=== PATIENT | male | born 1960 | race African-American/Black ===

== ENCOUNTER 2022-02-23 08:38 | Observation (INO) | payer OTHER, MEDICAID ==
[~2022-02-23] VITALS: Ht 167.6 cm; Wt 94.6 kg
--- NOTE | 2022-02-23 08:50 | ED Psychosocial ---
General Stated Complaint: ALTERED MENTAL STATUS/COMBATIVE Source: patient Exam Limitations: clinical condition History of Present Illness Date Seen by Provider: Feb 23, 2022 Time Seen by Provider: 08:40 Initial Comments Patient kelvin 62yo male who [facility] a local [facility] chief complaint of increasing behavioral disturbance. He is throwing tables and chairs, yelling. He has been at the facility for 2 weeks and apparently has been screened by [facility] already. He has VA benefits and they are waiting on approval for the hospitalization. He is quite agitated. Yelling that he feels like he is being treated like a prisoner of war. He does calm down when distracted. He denies any SOB, chest pain, abdominal pain, extremity pain, Headache or URI symptoms. He tells me his daughter lives in [place] and he wants to go see her, he can fly for free because she works for [employer]. 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 ROS difficult due to his agitation and prob baseline underlying mental illness. Timing/Duration: getting worse Severity: moderate Allergies and Home Medications Allergies Coded Allergies: No Known Drug Allergies (Unverified , 02/23/22) Patient Home Medication List Home Medication List Reviewed: Yes Review of Systems Constitutional: see HPI EENTM: no symptoms reported Respiratory: no symptoms reported Cardiovascular: no symptoms reported Gastrointestinal: no symptoms reported Musculoskeletal: no symptoms reported Skin: no symptoms reported Psychiatric/Neurological: Other (agitation) All Other Systems Reviewed Negative Unless Noted: Yes Physical Exam Vital Signs - First Documented 02/23/22 08:40 Temp 36.8 Pulse 77 Resp 18 B/P (MAP) 131/83 (99) Pulse Ox 95 O2 Delivery Room Air Capillary Refill : Height, Weight, BMI Height: '" Weight: lbs. oz. kg; BMI Method: General Appearance: WD/WN, no apparent distress HEENT: PERRL/EOMI Respiratory: lungs clear, normal breath sounds, no respiratory distress, no accessory muscle use Cardiovascular: regular rate, rhythm Gastrointestinal: non tender, soft Extremities: normal range of motion, other (mild swelling left hame with deformity of left fingers (resembles extensor tendon atrophy - patient states prior injury/issues while in [place])) Appearance/Memory: appropriate appearance, impaired insight Behavior/Eye Contact: increased rate of speech, compulsive Thoughts/Hallucinations: paranoid Skin: normal color, warm/dry Progress/Results/Core Measures Results/Orders Lab Results Laboratory Tests Test 02/23/22 13:29 02/23/22 13:30 02/23/22 15:54 Range/Units White Blood Count 5.1 4.3-11.0 10^3/uL Red Blood Count 4.67 4.30-5.52 10^6/uL Hemoglobin 13.2 L 13.3-17.7 g/dL Hematocrit 40 40-54 % Mean Corpuscular Volume 86 80-99 fL Mean Corpuscular Hemoglobin 28 25-34 pg Mean Corpuscular Hemoglobin Concent 33 32-36 g/dL Red Cell Distribution Width 13.1 10.0-14.5 % Platelet Count 174 130-400 10^3/uL Mean Platelet Volume 10.9 9.0-12.2 fL Immature Granulocyte % (Auto) 0 % Neutrophils (%) (Auto) 60 42-75 % Lymphocytes (%) (Auto) 26 12-44 % Monocytes (%) (Auto) 12 0-12 % Eosinophils (%) (Auto) 1 0-10 % Basophils (%) (Auto) 1 0-10 % Neutrophils # (Auto) 3.1 1.8-7.8 10^3/uL Lymphocytes # (Auto) 1.3 1.0-4.0 10^3/uL Monocytes # (Auto) 0.6 0.0-1.0 10^3/uL Eosinophils # (Auto) 0.0 0.0-0.3 10^3/uL Basophils # (Auto) 0.0 0.0-0.1 10^3/uL Immature Granulocyte # (Auto) 0.0 0.0-0.1 10^3/uL Sodium Level 140 135-145 MMOL/L Potassium Level 3.7 3.6-5.0 MMOL/L Chloride Level 107 98-107 MMOL/L Carbon Dioxide Level 17 L 21-32 MMOL/L Anion Gap 16 H 5-14 MMOL/L Blood Urea Nitrogen 15 7-18 MG/DL Creatinine 1.35 H 0.60-1.30 MG/DL Estimat Glomerular Filtration Rate 60 BUN/Creatinine Ratio 11 Glucose Level 126 H 70-105 MG/DL Calcium Level 9.3 8.5-10.1 MG/DL Corrected Calcium 9.7 8.5-10.1 MG/DL Total Bilirubin 0.4 0.1-1.0 MG/DL Aspartate Amino Transf (AST/SGOT) 55 H 5-34 U/L Alanine Aminotransferase (ALT/SGPT) 65 H 0-55 U/L Alkaline Phosphatase 63 40-136 U/L Total Protein 7.5 6.4-8.2 GM/DL Albumin 3.5 3.2-4.5 GM/DL Salicylates Level < 5.0 L 5.0-20.0 MG/DL Acetaminophen Level < 10 L 10-30 UG/ML Serum Alcohol < 10 <10 MG/DL Influenza Type A (RT-PCR) Not Detected Not Detecte Influenza Type B (RT-PCR) Not Detected Not Detecte SARS-CoV-2 RNA (RT-PCR) Not Detected Not Detecte Urine Color YELLOW Urine Clarity CLEAR Urine pH 7.0 5-9 Urine Specific [place] <=1.005 1.016-1.022 Urine Protein NEGATIVE NEGATIVE Urine Glucose (UA) NEGATIVE NEGATIVE Urine Ketones NEGATIVE NEGATIVE Urine Nitrite NEGATIVE NEGATIVE Urine Bilirubin NEGATIVE NEGATIVE Urine Urobilinogen 0.2 < = 1.0 MG/DL Urine Leukocyte Esterase NEGATIVE NEGATIVE Urine RBC (Auto) NEGATIVE NEGATIVE Urine RBC NONE /HPF Urine WBC NONE /HPF Urine Squamous Epithelial Cells 0-2 /HPF Urine Crystals NONE /LPF Urine Bacteria NEGATIVE /HPF Urine Casts NONE /LPF Urine Mucus NEGATIVE /LPF Urine Culture Indicated NO Urine Opiates Screen NEGATIVE NEGATIVE Urine Oxycodone Screen NEGATIVE NEGATIVE Urine Methadone Screen NEGATIVE NEGATIVE Urine Propoxyphene Screen NEGATIVE NEGATIVE Urine Barbiturates Screen NEGATIVE NEGATIVE Ur Tricyclic Antidepressants Screen NEGATIVE NEGATIVE Urine Phencyclidine Screen NEGATIVE NEGATIVE Urine Amphetamines Screen NEGATIVE NEGATIVE Urine Methamphetamines Screen NEGATIVE NEGATIVE Urine Benzodiazepines Screen NEGATIVE NEGATIVE Urine Cocaine Screen NEGATIVE NEGATIVE Urine Cannabinoids Screen NEGATIVE NEGATIVE My Orders Orders - BRIGHT DON MD General/Regular (02/23/22 Lunch) Ziprasidone Injection (Geodon Injection) (02/23/22 12:30) Water (Sterile) For Injection (Sterile W (02/23/22 12:30) Ziprasidone Injection (Geodon Injection) (02/23/22 12:19) Ziprasidone Injection (Geodon Injection) (02/23/22 13:00) Water (Sterile) For Injection (Sterile W (02/23/22 13:00) Ekg Tracing (02/23/22 13:39) Ua Culture If Indicated (02/23/22 13:49) Cbc With Automated Diff (02/23/22 13:49) Comprehensive Metabolic Panel (02/23/22 13:49) Alcohol (02/23/22 13:49) Drug Screen Stat (Urine) (02/23/22 13:49) Acetaminophen (02/23/22 13:49) Salicylate (02/23/22 13:49) Ekg Tracing (02/23/22 13:49) Ed Iv/Invasive Line Start (02/23/22 13:49) Monitor-Rhythm Ecg Trace Only (02/23/22 13:49) Bh Status Checks/Observation O Q15M (02/23/22 13:49) Ed Iv/Invasive Line Start (02/23/22 13:49) Ns Iv 1000 Ml (Sodium Chloride 0.9%) (02/23/22 14:30) Diltiazem Injection (Cardizem Injection) (02/23/22 14:30) Covid 19 Inhouse Test (02/23/22 15:34) Influenza A And B By Pcr (02/23/22 15:34) Isolation Central Supply Req (02/23/22 15:34) Diltiazem Injection (Cardizem Injection) (02/23/22 16:00) Apixaban Tablet (Eliquis Tablet) (02/23/22 16:30) Ekg Tracing (02/23/22 17:01) Medications Given in ED Current Medications Medications Dose Ordered Sig/Patricia Route Start Time Stop Time Status Last Admin Dose Admin Apixaban 5 mg ONCE ONCE PO 02/23/22 16:30 02/23/22 16:31 DC 02/23/22 16:35 5 MG Diltiazem HCl 10 mg ONCE ONCE IVP 02/23/22 14:30 02/23/22 14:31 DC 02/23/22 14:56 10 MG Diltiazem HCl 10 mg ONCE ONCE IVP 02/23/22 16:00 02/23/22 16:01 DC 02/23/22 16:26 10 MG Ziprasidone 10 mg ONCE ONCE IM 02/23/22 12:30 02/23/22 12:31 DC 02/23/22 12:50 10 MG Ziprasidone 10 mg ONCE ONCE IM 02/23/22 13:00 02/23/22 13:02 DC 02/23/22 13:05 10 MG Vital Signs/I&O 02/23/22 02/23/22 02/23/22 08:40 14:56 16:26 Temp 36.8 Pulse 77 121 105 Resp 18 B/P (MAP) 131/83 (99) 105/75 105/66 Pulse Ox 95 O2 Delivery Room Air Progress Progress Note #1: Time: 12:15 Progress Note Delon is getting acutely agitated, screaming, mad. Paperwork for screen is almost completed and certification for his transfer to [facility]. He became more aggressive, throwing things. Geodon ordered but he got up and eloped out of the department. PD called but has not responded. MAURICIO Nicole is with him in the front of the hospital awaiting PD. Progress Note #2: Time: 15:13 Progress Note Noted after the chaos of the patient eloping from the ER and having to be brought back in by LE, patient was quite diaphoretic; received the geodon IM (2 doses of 10mg). He calmed down dramatically. EKG and labs were obtained. He is in Afib with RVR 140's. BP 101 systolic. on review of [facility] - he has no prior history of afib. He is treated with IVF and cardizem. Resting comfortably. no complaints. Still calm at this point. Progress Note #3: Time: 17:00 Progress Note patient now rate controlled afib 80's Initial ECG Impression Date: Feb 23, 2022 Initial ECG Impression Time: 14:17 Initial ECG Rate: 131 Initial ECG Rhythm: A Fib/Flutter Initial ECG Intervals: Normal Initial ECG Impression: Atrial Fibrillation w/RVR Initial ECG Comparisson: No Previous ECG Available Departure Communication (Admissions) Time/Spoke to Admitting Phy: 17:[address] Brown; will obs here at [facility] [place] until seen by cardiology and bed opens tomorrow at [facility] Time/Spoke to Consulting Phy: 17:17 Impression Primary Impression: Psychosis Qualified Codes: F29 - Unspecified psychosis not due to a substance or known physiological condition Additional Impression: Atrial fibrillation with rapid ventricular response Disposition: ADMITTED INPATIENT Condition: Stable Admissions Decision to Admit Reason: Admit from ER (General) Decision to Admit/Date: Feb 23, 2022 Time/Decision to Admit Time: 17:16 BRIGHT DON MD Feb 23, 2022 08:50
[2022-02-23] MEDS ORDERED: ZIPRASIDONE 20 MG INJ (GEODON) VIAL IM ONE ×3 (12:19→13:00)
[2022-02-23] MEDS ORDERED: WATER (STERILE) FOR INJ 10 ML BTL INJ SCH ×2 (12:30→13:00)
[2022-02-23 13:55] LABS: BASOPHILS % (AUTO) 1 % (0-10); EOSINOPHILS % (AUTO) 1 % (0-10); HEMATOCRIT 40 % (40-54); HEMOGLOBIN 13.2 g/dL (13.3-17.7); LYMPHOCYTES # (AUTO) 1.3 10^3/uL (1.0-4.0); LYMPHOCYTES % (AUTO) 26 % (12-44); MEAN CORPUSCULAR HEMOGLOBIN 28 pg (25-34); MEAN CORPUSCULAR HGB CONC 33 g/dL (32-36); MEAN CORPUSCULAR VOLUME 86 fL (80-99); MEAN PLATELET VOLUME 10.9 fL (9.0-12.2); MONOCYTES # (AUTO) 0.6 10^3/uL (0.0-1.0); MONOCYTES % (AUTO) 12 % (0-12); NEUTROPHILS # (AUTO) 3.1 10^3/uL (1.8-7.8); NEUTROPHILS % (AUTO) 60 % (42-75); PLATELET COUNT 174 10^3/uL (130-400); WHITE BLOOD COUNT 5.1 10^3/uL (4.3-11.0)
[2022-02-23 14:00] LABS: CHLORIDE 107 MMOL/L (98-107); POTASSIUM 3.7 MMOL/L (3.6-5.0); SODIUM 140 MMOL/L (135-145)
[2022-02-23 14:01] LABS: ALBUMIN 3.5 GM/DL (3.2-4.5)
[2022-02-23 14:02] LABS: CALCIUM 9.3 MG/DL (8.5-10.1)
[2022-02-23 14:03] LABS: GLUCOSE 126 MG/DL (70-105); TOTAL PROTEIN 7.5 GM/DL (6.4-8.2)
[2022-02-23 14:04] LABS: CARBON DIOXIDE 17 MMOL/L (21-32)
[2022-02-23 14:05] LABS: BILIRUBIN,TOTAL 0.4 MG/DL (0.1-1.0)
[2022-02-23 14:07] LABS: ALKALINE PHOSPHATASE 63 U/L (40-136); CREATININE SERUM 1.35 MG/DL (0.60-1.30); GFR ESTIMATED 60
[2022-02-23 14:08] LABS: ACETAMINOPHEN < 10 UG/ML (10-30); BUN/CREATININE RATIO 11
[2022-02-23 14:10] LABS: ALANINE AMINOTRANSFERASE 65 U/L (0-55); SALICYLATE < 5.0 MG/DL (5.0-20.0)
[2022-02-23] MEDS ORDERED: NS IV 1000 ML 1,000 ML IV SCH (14:30)
[2022-02-23 16:01] LABS: BILIRUBIN,URINE NEGATIVE (NEGATIVE); CLARITY,URINE CLEAR; COLOR,URINE YELLOW; GLUCOSE, URINE (UA) NEGATIVE (NEGATIVE); KETONES,URINE NEGATIVE (NEGATIVE); LEUKOCYTE ESTERASE ,URINE NEGATIVE (NEGATIVE); NITRITE,URINE NEGATIVE (NEGATIVE); PROTEIN,URINE NEGATIVE (NEGATIVE)
[2022-02-23 16:07] LABS: BACTERIA,URINE NEGATIVE /HPF; SQUAMOUS EPITHELIAL CELL,UR 0-2 /HPF
[2022-02-23 16:15] LABS: AMPHETAMINE SCREEN, URINE NEGATIVE (NEGATIVE); BARBITURATE SCREEN URINE NEGATIVE (NEGATIVE); BENZODIAZEPINES SCREEN URINE NEGATIVE (NEGATIVE); CANNABINOID SCREEN, URINE NEGATIVE (NEGATIVE); COCAINE SCREEN URINE NEGATIVE (NEGATIVE); METHADONE STAT NEGATIVE (NEGATIVE); OPIATE SCREEN URINE NEGATIVE (NEGATIVE); OXYCODONE STAT NEGATIVE (NEGATIVE); PROPOXYPHENE STAT NEGATIVE (NEGATIVE); TRICYCLIC ANTIDEPRESSANTS SCRE NEGATIVE (NEGATIVE)
[2022-02-23] MEDS ORDERED: APIXABAN 5 MG (ELIQUIS) TABLET PO ONE (16:30)
[2022-02-23] MEDS ORDERED: BISACODYL 10 MG SUPP (DULCOLAX) PR PRN (18:30)
[2022-02-23] MEDS ORDERED: MELATONIN 3 MG TABLET PO PRN (18:30)
[2022-02-23] MEDS ORDERED: LORazepam 1 MG (ATIVAN) TAB PO PRN (18:30)
[2022-02-23] MEDS ORDERED: polyethylene glycoL POWDER 17 GM (MIRALAX) PACK PO PRN (18:30)
[2022-02-23] MEDS ORDERED: ANTACID SUSP 30 ML UDC (MYLANTA) PO PRN (18:30)
[2022-02-23] MEDS ORDERED: LACTULOSE SYRUP 10GM/15ML (ENULOSE) 30ML UDC PO PRN (18:30)
[2022-02-23] MEDS ORDERED: ONDANSETRON 4 MG (ZOFRAN) ORAL DISSOLVE TAB PO PRN (18:30)
[2022-02-23] MEDS ORDERED: morphine INJ 4 MG/ML 1 ML (VIAL/SYRINGE) IV PRN (18:30)
[2022-02-23] MEDS ORDERED: ONDANSETRON 4 MG/2 ML (SDV) Z0FRAN IV PRN (18:30)
[2022-02-23] MEDS ORDERED: MILK OF MAGNESIA 400 MG/5 ML 30 ML UDC PO PRN (18:30)
[2022-02-23] MEDS ORDERED: ZIPRASIDONE 20 MG INJ (GEODON) VIAL IM PRN (18:30)
[2022-02-23] MEDS ORDERED: diphenhydrAMINE 50 MG/ML INJ (BENADRYL) IVP PRN (18:30)
[2022-02-23] MEDS ORDERED: diphenhydrAMINE 25 MG TAB (BENADRYL) PO PRN (18:30)
[2022-02-23] MEDS ORDERED: CALCIUM CARBONATE 500 MG (TUMS) TAB.CHEW PO PRN (18:30)
[2022-02-23] MEDS: APIXABAN 5 MG (ELIQUIS) TABLET PO SCH (19:29)
[2022-02-23] MEDS: DOCUSATE SODIUM 100 MG (COLACE) CAP PO SCH (19:32)
[2022-02-23] MEDS: SENNOSIDES 8.6 MG (SENOKOT) TAB PO SCH (19:32)
[2022-02-23 19:37] VITALS: BP 116/73
[2022-02-23] MEDS ORDERED: RT-ALBUTEROL SULF 2.5 MG/3 ML PRE-MIX VIAL INH PRN (20:00)
[2022-02-23 20:05] VITALS: BP 132/91
[2022-02-23] MEDS ORDERED: meTOprolol 5 MG/5 ML (LOPRESSOR) VIAL IV PRN (21:15)
[2022-02-23] MEDS ORDERED: dilTIAZem120 MG (CARDIZEM CD) CAP PO ONE ×2 (21:15→21:34)
[2022-02-24] VITALS (7 sets, daily range): BP systolic 103–127; BP diastolic 69–81
[2022-02-24 06:13] LABS: BASOPHILS # (AUTO) 0.1 10^3/uL (0.0-0.1); BASOPHILS % (AUTO) 1 % (0-10); EOSINOPHILS % (AUTO) 1 % (0-10); HEMATOCRIT 39 % (40-54); HEMOGLOBIN 12.5 g/dL (13.3-17.7); LYMPHOCYTES # (AUTO) 1.8 10^3/uL (1.0-4.0); LYMPHOCYTES % (AUTO) 35 % (12-44); MEAN CORPUSCULAR HEMOGLOBIN 28 pg (25-34); MEAN CORPUSCULAR HGB CONC 33 g/dL (32-36); MEAN CORPUSCULAR VOLUME 86 fL (80-99); MEAN PLATELET VOLUME 11.4 fL (9.0-12.2); MONOCYTES # (AUTO) 0.6 10^3/uL (0.0-1.0); MONOCYTES % (AUTO) 11 % (0-12); NEUTROPHILS # (AUTO) 2.6 10^3/uL (1.8-7.8); NEUTROPHILS % (AUTO) 52 % (42-75); PLATELET COUNT 168 10^3/uL (130-400); WHITE BLOOD COUNT 5.1 10^3/uL (4.3-11.0)
[2022-02-24 06:18] LABS: ALBUMIN 3.1 GM/DL (3.2-4.5); POTASSIUM 3.7 MMOL/L (3.6-5.0)
[2022-02-24 06:19] LABS: CALCIUM 8.6 MG/DL (8.5-10.1)
[2022-02-24 06:21] LABS: TOTAL PROTEIN 6.6 GM/DL (6.4-8.2)
[2022-02-24 06:22] LABS: BILIRUBIN,TOTAL 0.4 MG/DL (0.1-1.0)
[2022-02-24 06:24] LABS: CREATININE SERUM 1.05 MG/DL (0.60-1.30)
--- NOTE | 2022-02-24 08:12 | Consultation-Cardiology ---
HPI-Cardiology Cardiology Consultation Date of Consultation 02/24/22 Date of Admission Time Seen by Provider: 08:08 Indication: Atrial fibrillation HPI 62 years old gentleman presented from a local [facility], patient was having significant behavioral disturbance, he was throwing tables and chairs and yelling at everyone. He has underlying bipolar disorder and schizophrenia. Patient was brought back to the emergency room by police. He received Geodon. Sedated last night. On returning to the emergency room he was noted to be in atrial fibrillation with rapid ventricular response. This morning he was seen at bedside, sitting and eating breakfast, pleasant and smiling. Feeling better, denied any chest pain. Denied any palpitation. No syncope or near syncopal episodes. No claudications. He has returned to sinus rhythm. Home Medications & Allergies Allergies: Coded Allergies: No Known Drug Allergies (Unverified , 02/23/22) Home Medication List Reviewed: Yes [id number] Hx Patient Social History Employed/Student: unemployed Smoking Status: Unknown if Ever Smoked Have you traveled recently?: Unable to obtain Alcohol Use?: Unable to obtain Past Medical History Discussed below Family Medical History Family Medical Hx Noncontributory Review of Systems-General Review of Systems Constitutional: see HPI EENTM: no symptoms reported Respiratory: no symptoms reported Cardiovascular: no symptoms reported Gastrointestinal: no symptoms reported Musculoskeletal: no symptoms reported Skin: no symptoms reported Psychiatric/Neurological: Other (agitation) All Other Systems Reviewed Negative Unless Noted: Yes Reviewed Test Results Reviewed Test Results Lab Laboratory Tests Test 02/23/22 13:29 02/23/22 13:30 02/23/22 15:54 02/24/22 05:19 Range/Units White Blood Count 5.1 5.1 4.3-11.0 10^3/uL Red Blood Count 4.67 4.49 4.30-5.52 10^6/uL Hemoglobin 13.2 L 12.5 L 13.3-17.7 g/dL Hematocrit 40 39 L 40-54 % Mean Corpuscular Volume 86 86 80-99 fL Mean Corpuscular Hemoglobin 28 28 25-34 pg Mean Corpuscular Hemoglobin Concent 33 33 32-36 g/dL Red Cell Distribution Width 13.1 13.0 10.0-14.5 % Platelet Count 174 168 130-400 10^3/uL Mean Platelet Volume 10.9 11.4 9.0-12.2 fL Immature Granulocyte % (Auto) 0 0 % Neutrophils (%) (Auto) 60 52 42-75 % Lymphocytes (%) (Auto) 26 35 12-44 % Monocytes (%) (Auto) 12 11 0-12 % Eosinophils (%) (Auto) 1 1 0-10 % Basophils (%) (Auto) 1 1 0-10 % Neutrophils # (Auto) 3.1 2.6 1.8-7.8 10^3/uL Lymphocytes # (Auto) 1.3 1.8 1.0-4.0 10^3/uL Monocytes # (Auto) 0.6 0.6 0.0-1.0 10^3/uL Eosinophils # (Auto) 0.0 0.0 0.0-0.3 10^3/uL Basophils # (Auto) 0.0 0.1 0.0-0.1 10^3/uL Immature Granulocyte # (Auto) 0.0 0.0 0.0-0.1 10^3/uL Sodium Level 140 141 135-145 MMOL/L Potassium Level 3.7 3.7 3.6-5.0 MMOL/L Chloride Level 107 109 H 98-107 MMOL/L Carbon Dioxide Level 17 L 20 L 21-32 MMOL/L Anion Gap 16 H 12 5-14 MMOL/L Blood Urea Nitrogen 15 15 7-18 MG/DL Creatinine 1.35 H 1.05 0.60-1.30 MG/DL Estimat Glomerular Filtration Rate 60 81 BUN/Creatinine Ratio 11 14 Glucose Level 126 H 88 70-105 MG/DL Calcium Level 9.3 8.6 8.5-10.1 MG/DL Corrected Calcium 9.7 9.3 8.5-10.1 MG/DL Total Bilirubin 0.4 0.4 0.1-1.0 MG/DL Aspartate Amino Transf (AST/SGOT) 55 H 49 H 5-34 U/L Alanine Aminotransferase (ALT/SGPT) 65 H 57 H 0-55 U/L Alkaline Phosphatase 63 57 40-136 U/L Total Protein 7.5 6.6 6.4-8.2 GM/DL Albumin 3.5 3.1 L 3.2-4.5 GM/DL Salicylates Level < 5.0 L 5.0-20.0 MG/DL Acetaminophen Level < 10 L 10-30 UG/ML Serum Alcohol < 10 <10 MG/DL Influenza Type A (RT-PCR) Not Detected Not Detecte Influenza Type B (RT-PCR) Not Detected Not Detecte SARS-CoV-2 RNA (RT-PCR) Not Detected Not Detecte Urine Color YELLOW Urine Clarity CLEAR Urine pH 7.0 5-9 Urine Specific [place] <=1.005 1.016-1.022 Urine Protein NEGATIVE NEGATIVE Urine Glucose (UA) NEGATIVE NEGATIVE Urine Ketones NEGATIVE NEGATIVE Urine Nitrite NEGATIVE NEGATIVE Urine Bilirubin NEGATIVE NEGATIVE Urine Urobilinogen 0.2 < = 1.0 MG/DL Urine Leukocyte Esterase NEGATIVE NEGATIVE Urine RBC (Auto) NEGATIVE NEGATIVE Urine RBC NONE /HPF Urine WBC NONE /HPF Urine Squamous Epithelial Cells 0-2 /HPF Urine Crystals NONE /LPF Urine Bacteria NEGATIVE /HPF Urine Casts NONE /LPF Urine Mucus NEGATIVE /LPF Urine Culture Indicated NO Urine Opiates Screen NEGATIVE NEGATIVE Urine Oxycodone Screen NEGATIVE NEGATIVE Urine Methadone Screen NEGATIVE NEGATIVE Urine Propoxyphene Screen NEGATIVE NEGATIVE Urine Barbiturates Screen NEGATIVE NEGATIVE Ur Tricyclic Antidepressants Screen NEGATIVE NEGATIVE Urine Phencyclidine Screen NEGATIVE NEGATIVE Urine Amphetamines Screen NEGATIVE NEGATIVE Urine Methamphetamines Screen NEGATIVE NEGATIVE Urine Benzodiazepines Screen NEGATIVE NEGATIVE Urine Cocaine Screen NEGATIVE NEGATIVE Urine Cannabinoids Screen NEGATIVE NEGATIVE Physical Exam Physical Exam Vital Signs Vital Signs - First Documented 02/23/22 02/23/22 08:40 19:37 Temp 36.8 Pulse 77 Resp 18 B/P (MAP) 131/83 (99) Pulse Ox 95 O2 Delivery Room Air FiO2 21 Capillary Refill : Less Than 3 Seconds Height, Weight, BMI Height: '" Weight: lbs. oz. kg; 33.67 BMI Method: General Appearance: No Apparent Distress, WD/WN Eyes: Bilateral Eye Normal Inspection, Bilateral Eye PERRL, Bilateral Eye EOMI HEENT: PERRL/EOMI, TMs Normal, Normal ENT Inspection, Pharynx Normal, Moist Mucous Membranes Neck: Full Range of Motion, Normal Inspection, Non Tender, Supple, Carotid Bruit Respiratory: Chest Non Tender, Normal Breath Sounds, No Accessory Muscle Use, No Respiratory Distress Cardiovascular: Regular Rate, Rhythm, No Edema, No Gallop, No JVD, No Murmur, Normal Peripheral Pulses Gastrointestinal: Normal Bowel Sounds, No Organomegaly, No Pulsatile Mass, Non Tender, Soft Back: Normal Inspection, No CVA Tenderness, No Vertebral Tenderness Extremity: Normal Capillary Refill, Normal Inspection, Normal Range of Motion, Non Tender, No Calf Tenderness, No Pedal Edema Neurologic/Psychiatric: Alert, Oriented x3, No Motor/Sensory Deficits, Normal Mood/Affect Skin: Normal Color, Warm/Dry Lymphatic: No Adenopathy A/P-Cardiology Admission Diagnosis Paroxysmal atrial fibrillation Tachycardia Bipolar disorder Schizophrenia Assessment/Plan Paroxysmal atrial fibrillation with rapid ventricular response Single episodes occurred during severe agitation. Returned to sinus rhythm on Cardizem. Will evaluate 2D echo [id number] score of 0, patient was started on Eliquis. Converted to sinus rhythm. I will discontinue Eliquis and Cardizem at this point. Monitor rhythm as an outpatient Behavioral disturbance, aggressive behavior, bipolar disorder and schizophrenia. Started on Geodon, managed by primary care team Planning to transfer for inpatient psych unit KELLY LOPEZ MD Feb 24, 2022 08:12
[2022-02-24] MEDS ORDERED: dilTIAZem120 MG (CARDIZEM CD) CAP PO SCH (09:00)
[2022-02-24] MEDS: DOCUSATE SODIUM 100 MG (COLACE) CAP PO SCH ×2 (09:37→21:00)
[2022-02-24] MEDS: SENNOSIDES 8.6 MG (SENOKOT) TAB PO SCH ×2 (09:37→21:00)
[2022-02-24] MEDS: ASPIRIN 325 MG (5 GR) TABLET PO SCH (09:37)
[2022-02-24] MEDS: APIXABAN 5 MG (ELIQUIS) TABLET PO SCH ×2 (09:37→20:42)
[2022-02-24] MEDS ORDERED: ASPI-808 PO (09:56)
--- NOTE | 2022-02-24 10:23 | Short Stay Summary ---
LYNETTE BONILLA 02/24/22 1023: History of Present Illness History of Present Illness Reason for visit/HPI Patient 62 years old gentleman presented from a local retirement with underlying bipolar disorder and schizophrenia. Patient was having significant behavioral disturbance, he was throwing tables and chairs and yelling at everyone. Patient was brought back to the emergency room by police. While in the ER he was noted to be in atrial fibrillation with rapid ventricular response. He was then admitted to the hospital for observation, where he continued to have episodes of psychosis and was given ziprasidone which helped the patient calm down. He is a [employer] and has VA rights but did not have the paper work needed to be admitted there on his arrival to the ER. Paper work has since been processed and patient should be heading to [facility]. During his stay cardiology was consulted. He was started on diltiazem and eliquis for his A-fib RVR. Once on those medications he returned to normal sinus rhythm. On his return to normal sinus rhythm both diltiazem ad eliquis were discontinued by cardiology. As of this morning patient was in a very pleasant mood. He was agreeable and in no acute distress or pain. His bowel movements and voiding are adequate. He denies any N/V/D, or chest pain. Dr. Sloan preformed an echo this morning. Date of Admission Feb 23, 2022 at 17:21 Date of Discharge Attending Physician Adelfo Clifford DO Admitting Physician Admitting Physician: Karie Diaz DO Attending Physician: Karie Diaz DO Consult Allergies and Home Medications Allergies Coded Allergies: No Known Drug Allergies (Unverified , 02/23/22) Patient Home Medication List Amlodipine Besylate (Amlodipine Besylate) 10 Mg Tablet, 10 MG PO DAILY, (Repor tessa) Entered as Reported by: ARTIE CLARK on 02/24/22 1054 Last Action: Reviewed Aspirin (Aspirin) 325 Mg Tablet, 325 MG PO DAILY Prescribed by: KARIE DIAZ on 02/24/22 0956 Aspirin (Aspirin) 81 Mg Tab.chew, 81 MG PO DAILY, (Reported) Entered as Reported by: ARTIE CLARK on 02/24/22 1054 Last Action: Reviewed Atorvastatin Calcium (Atorvastatin Calcium) 40 Mg Tablet, 40 MG PO DAILY, (Reported) Entered as Reported by: ARTIE CLARK on 02/24/221053 Last Action: Reviewed Chlorthalidone (Chlorthalidone) 25 Mg Tablet, 25 MG PO DAILY, (Reported) Entered as Reported by: ARTIE CLARK on 02/24/221053 Last Action: Reviewed Donepezil HCl (Donepezil HCl) 5 Mg Tablet, 5 MG PO HS, (Reported) Entered as Reported by: ARTIE CLARK on 02/24/221053 Last Action: Reviewed Lisinopril (Lisinopril) 40 Mg Tablet, 20 MG PO DAILY, (Reported) Entered as Reported by: ARTIE CLARK on 02/24/221053 Last Action: Reviewed Lorazepam (Ativan) 0.5 Mg Tablet, 0.5 MG PO DAILY, (Reported) Entered as Reported by: ARTIE CLARK on 02/24/221053 Last Action: Reviewed Melatonin (Melatonin) 3 Mg Tablet, 3 MG PO HS, (Reported) Entered as Reported by: ARTIE CLARK on 02/24/221053 Last Action: Reviewed Sertraline HCl (Sertraline HCl) 50 Mg Tablet, 25 MG PO DAILY, (Reported) Entered as Reported by: ARTIE CLARK on 02/24/221053 Last Action: Reviewed Trazodone HCl (Trazodone HCl) 50 Mg Tablet, 50 MG PO HS, (Reported) Entered as Reported by: ARTIE CLARK on 02/24/221053 Last Action: Reviewed Past Bsfiapo-Zsfjbs-Ytvgiq Hx Patient Social History Employed/Student: unemployed Smoking Status: Light Tobacco Smoker (Reports occasional use) Have you traveled recently?: Unable to obtain Alcohol Use?: No Pt feels they are or have been: Unable to obtain Tobacco type used: Cigarettes Neurological Stroke Psychosocial Behavioral Health Disorders: Bipolar, Schizophrenia Review of Systems Constitutional: No chills, No dizziness, No fever EENTM: hoarseness, throat pain Respiratory: No cough, No dyspnea on exertion Cardiovascular: No chest pain, No edema Gastrointestinal: No abdominal pain, No constipation Musculoskeletal: No back pain, No muscle twitching Skin: No change in color, No change in hair/nails Psychiatric/Neurological: Denies Headache, Denies Numbness Physical Exam Vital Signs Vital Signs - First Documented 02/23/22 02/23/22 08:40 19:37 Temp 36.8 Pulse 77 Resp 18 B/P (MAP) 131/83 (99) Pulse Ox 95 O2 Delivery Room Air FiO2 21 Capillary Refill : Less Than 3 Seconds Height, Weight, BMI Height: '" Weight: lbs. oz. kg; 33.67 BMI Method: General Appearance: No Apparent Distress, WD/WN HEENT: PERRL/EOMI; No Scleral Icterus (L), No Scleral Icterus (R) Neck: Full Range of Motion, Normal Inspection, Supple Respiratory: Chest Non Tender, Lungs Clear, Normal Breath Sounds Cardiovascular: No Edema, No Gallop, No JVD Gastrointestinal: Normal Bowel Sounds, Non Tender, Soft Rectal: Deferred Back: Normal Inspection, No CVA Tenderness Extremity: Normal Capillary Refill, Normal Inspection Neurologic/Psychiatric: Alert, Oriented x3 Skin: Normal Color, Warm/Dry Short Stay Diagnosis Discharge Diagnosis-Short Stay Admission Diagnosis: Psychosis A-Fib RVR Final Discharge Diagnosis: Paroxsymal A-Fib- resolved Bipolar Schizophrenia Episodic psychosis Conclusion Labs Laboratory Tests 02/23/22 13:29: White Blood Count 5.1, Red Blood Count 4.67, Hemoglobin 13.2L, Hematocrit 40, Mean Corpuscular Volume 86, Mean Corpuscular Hemoglobin 28, Mean Corpuscular Hemoglobin Concent 33, Red Cell Distribution Width 13.1, Platelet Count 174, Mean Platelet Volume 10.9, Immature Granulocyte % (Auto) 0, Neutrophils (%) (Auto) 60, Lymphocytes (%) (Auto) 26, Monocytes (%) (Auto) 12, Eosinophils (%) (Auto) 1, Basophils (%) (Auto) 1, Neutrophils # (Auto) 3.1, Lymphocytes # (Auto) 1.3, Monocytes # (Auto) 0.6, Eosinophils # (Auto) 0.0, Basophils # (Auto) 0.0, Immature Granulocyte # (Auto) 0.0, Sodium Level 140, Potassium Level 3.7, Chloride Level 107, Carbon Dioxide Level 17L, Anion Gap 16H, Blood Urea Nitrogen 15, Creatinine 1.35H, Estimat Glomerular Filtration Rate 60, BUN/Creatinine Ratio 11, Glucose Level 126H, Calcium Level 9.3, Corrected Calcium 9.7, Total Bilirubin 0.4, Aspartate Amino Transf (AST/SGOT) 55H, Alanine Aminotransferase (ALT/SGPT) 65H, Alkaline Phosphatase 63, Total Protein 7.5, Albumin 3.5, Salicylates Level < 5.0L, Acetaminophen Level < 10L, Serum Alcohol < 10 02/23/22 13:30: Influenza Type A (RT-PCR) Not Detected, Influenza Type B (RT-PCR) Not Detected, SARS-CoV-2 RNA (RT-PCR) Not Detected 02/23/22 15:54: Urine Color YELLOW, Urine Clarity CLEAR, Urine pH 7.0, Urine Specific [place] <=1.005, Urine Protein NEGATIVE, Urine Glucose (UA) NEGATIVE, Urine Ketones NEGATIVE, Urine Nitrite NEGATIVE, Urine Bilirubin NEGATIVE, Urine Urobilinogen 0.2, Urine Leukocyte Esterase NEGATIVE, Urine RBC (Auto) NEGATIVE, Urine RBC NONE, Urine WBC NONE, Urine Squamous Epithelial Cells 0-2, Urine Crystals NONE, Urine Bacteria NEGATIVE, Urine Casts NONE, Urine Mucus NEGATIVE, Urine Culture Indicated NO, Urine Opiates Screen NEGATIVE, Urine Oxycodone Screen NEGATIVE, Urine Methadone Screen NEGATIVE, Urine Propoxyphene Screen NEGATIVE, Urine Barbiturates Screen NEGATIVE, Ur Tricyclic Antidepressants Screen NEGATIVE, Urine Phencyclidine Screen NEGATIVE, Urine Amphetamines Screen NEGATIVE, Urine Methamphetamines Screen NEGATIVE, Urine Benzodiazepines Screen NEGATIVE, Urine Cocaine Screen NEGATIVE, Urine Cannabinoids Screen NEGATIVE 02/24/22 05:00: Thyroid Stimulating Hormone (TSH) 1.73 02/24/22 05:19: White Blood Count 5.1, Red Blood Count 4.49, Hemoglobin 12.5L, Hematocrit 39L, Mean Corpuscular Volume 86, Mean Corpuscular Hemoglobin 28, Mean Corpuscular Hemoglobin Concent 33, Red Cell Distribution Width 13.0, Platelet Count 168, Mean Platelet Volume 11.4, Immature Granulocyte % (Auto) 0, Neutrophils (%) (Auto) 52, Lymphocytes (%) (Auto) 35, Monocytes (%) (Auto) 11, Eosinophils (%) (Auto) 1, Basophils (%) (Auto) 1, Neutrophils # (Auto) 2.6, Lymphocytes # (Auto) 1.8, Monocytes # (Auto) 0.6, Eosinophils # (Auto) 0.0, Basophils # (Auto) 0.1, Immature Granulocyte # (Auto) 0.0, Sodium Level 141, Potassium Level 3.7, Chloride Level 109H, Carbon Dioxide Level 20L, Anion Gap 12, Blood Urea Nitrogen 15, Creatinine 1.05, Estimat Glomerular Filtration Rate 81, BUN/Creatinine Ratio 14, Glucose Level 88, Calcium Level 8.6, Corrected Calcium 9.3, Total Bilirubin 0.4, Aspartate Amino Transf (AST/SGOT) 49H, Alanine Aminotransferase (ALT/SGPT) 57H, Alkaline Phosphatase 57, Total Protein 6.6, Albumin 3.1L 02/24/22 09:33: Conclusion/Plan A-Fib Consulted Dr. Dee Evans his note (monitor rhythm in outpatient Bipolar Episodic psychosis Schizophrenia Transfering to [facility]. KARIE DIAZ DO 02/25/22 0548: History of Present Illness History of Present Illness Reason for visit/HPI CC: Psychosis with episode of AF RVR HPI: This is a 62yoAAM ID patient who presented to the ER with psychosis and had an episode of AF RVR quickly aborted with Cardizem bolus 5mg. Cardiology consulted. [facility] evaluation completed and will attempt to move to [facility]. Time Seen by Provider: 10:00 Allergies and Home Medications Allergies Coded Allergies: No Known Drug Allergies (Unverified , 02/23/22) Patient Home Medication List Home Medication List Reviewed: Yes Amlodipine Besylate (Amlodipine Besylate) 10 Mg Tablet, 10 MG PO DAILY, (Reported) Entered as Reported by: ARTIE CLARK on 02/24/221053 Last Action: Reviewed Aspirin (Aspirin) 325 Mg Tablet, 325 MG PO DAILY Prescribed by: KARIE DIAZ on 02/24/22 09 Aspirin (Aspirin) 81 Mg Tab.chew, 81 MG PO DAILY, (Reported) Entered as Reported by: ARTIE CLARK on 02/24/221053 Last Action: Reviewed Atorvastatin Calcium (Atorvastatin Calcium) 40 Mg Tablet, 40 MG PO DAILY, (Reported) Entered as Reported by: ARTIE CLARK on 02/24/221053 Last Action: Reviewed Chlorthalidone (Chlorthalidone) 25 Mg Tablet, 25 MG PO DAILY, (Reported) Entered as Reported by: ARTIE CLARK on 02/24/221053 Last Action: Reviewed Donepezil HCl (Donepezil HCl) 5 Mg Tablet, 5 MG PO HS, (Reported) Entered as Reported by: ARTIE CLARK on 02/24/221053 Last Action: Reviewed Lisinopril (Lisinopril) 40 Mg Tablet, 20 MG PO DAILY, (Reported) Entered as Reported by: ARTIE CLARK on 02/24/221053 Last Action: Reviewed Lorazepam (Ativan) 0.5 Mg Tablet, 0.5 MG PO DAILY, (Reported) Entered as Reported by: ARTIE CLARK on 02/24/221053 Last Action: Reviewed Melatonin (Melatonin) 3 Mg Tablet, 3 MG PO HS, (Reported) Entered as Reported by: ARTIE CLARK on 02/24/221053 Last Action: Reviewed Sertraline HCl (Sertraline HCl) 50 Mg Tablet, 25 MG PO DAILY, (Reported) Entered as Reported by: ARTIE CLARK on 02/24/221053 Last Action: Reviewed Trazodone HCl (Trazodone HCl) 50 Mg Tablet, 50 MG PO HS, (Reported) Entered as Reported by: ARTIE CLARK on 02/24/221053 Last Action: Reviewed Past Bgrumwm-Mlvwll-Qbywxe Hx Patient Social History Marrital Status: single Employed/Student: unemployed Smoking Status: Current Everyday Smoker Cardiovascular Atrial Fibrillation (isolated episode 02/24/22), High Cholesterol, Hypertension Review of Systems Constitutional: see HPI Physical Exam General Appearance: No Apparent Distress, WD/WN Eyes: Bilateral Eye Normal Inspection, Bilateral Eye PERRL, Bilateral Eye EOMI HEENT: PERRL/EOMI, TMs Normal, Normal ENT Inspection, Pharynx Normal Neck: Full Range of Motion, Normal Inspection, Non Tender, Supple, Carotid Bruit Respiratory: Chest Non Tender, Lungs Clear, Normal Breath Sounds, No Accessory Muscle Use, No Respiratory Distress Cardiovascular: Regular Rate, Rhythm, No Edema, No Gallop, No JVD, No Murmur, Normal Peripheral Pulses Gastrointestinal: Normal Bowel Sounds, No Organomegaly, No Pulsatile Mass, Non Tender, Soft Back: Normal Inspection, No CVA Tenderness, No Vertebral Tenderness Extremity: Normal Capillary Refill, Normal Inspection, Normal Range of Motion, Non Tender, No Calf Tenderness, No Pedal Edema Neurologic/Psychiatric: Alert, Oriented x3, No Motor/Sensory Deficits, Normal Mood/Affect Skin: Normal Color, Warm/Dry Lymphatic: No Adenopathy Short Stay Diagnosis Discharge Diagnosis-Short Stay Admission Diagnosis: Acute psychosis Isolated episode of AF RVR Final Discharge Diagnosis: Acute psychosis Isolated episode of AF RVR Conclusion Conclusion/Plan [facility] Supervisory-Addendum Brief Verification & Attestation Participated in pt care: history, MDM, physical Personally performed: exam, history, MDM, supervision of care Care discussed with: Medical Student Procedures: n/a Results interpretation: Verified all documentation Verification and Attestation of Medical Student E/M Service A medical student performed and documented this service in my presence. I reviewed and verified all information documented by the medical student and made modifications to such information, when appropriate. I personally performed the physical exam and medical decision making. Karie Daiz, Feb 25, 2022,05:48 LYNETTE BONILLA Feb 24, 2022 10:23 KARIE DIAZ DO Feb 25, 2022 05:48
[2022-02-24] MEDS ORDERED: MELA3TAB39 PO (10:54)
[2022-02-24] MEDS ORDERED: LISI40TA9 PO (10:54)
[2022-02-24] MEDS ORDERED: ASPI-999 PO (10:54)
[2022-02-24] MEDS ORDERED: TRZ50T PO (10:54)
[2022-02-24] MEDS ORDERED: ATOR40TA70 PO (10:54)
[2022-02-24] MEDS ORDERED: AMLO-251 PO (10:54)
[2022-02-24] MEDS ORDERED: SERT-413 PO (10:54)
[2022-02-24] MEDS ORDERED: LORA-404 PO (10:54)
[2022-02-24] MEDS ORDERED: DONE5TAB30 PO (10:54)
[2022-02-24] MEDS ORDERED: CHLO25TA22 PO (10:54)
[2022-02-24] MEDS: ACETAMINOPHEN 325 MG TABLET PO PRN (20:42)
[2022-02-24 22:06] LABS: HEPATITIS C ANTIBODY C Reactive (Non-Reactive)
[2022-02-25 07:25] VITALS: BP 136/88
[2022-02-25] MEDS: DOCUSATE SODIUM 100 MG (COLACE) CAP PO SCH ×2 (09:11→20:21)
[2022-02-25] MEDS: SENNOSIDES 8.6 MG (SENOKOT) TAB PO SCH ×2 (09:11→20:21)
[2022-02-25] MEDS: ASPIRIN 325 MG (5 GR) TABLET PO SCH (09:11)
--- NOTE | 2022-02-25 09:11 | Cardiology Progress Note ---
Subjective Date Seen by Provider: Feb 25, 2022 Time Seen by Provider: 09:10 Subjective/Events-last exam Patient was seen at bedside, laying down comfortably More agitated today. Review of Systems General: No Chills, No Night Sweats, No Fatigue, No Malaise, No Appetite, No O ther HEENT: No Head Aches, No Visual Changes, No Eye Pain, No Ear Pain, No Dysphasia, No Sinus Congestion, No Post Nasal Drip, No Sore Throat, No Other Pulmonary: No Dyspnea, No Cough, No Pleuritic Chest Pain, No Other Cardiovascular: No: Chest Pain, Palpitations, Orthopnea, Paroxysmal Noc. Dyspnea, Edema, Lt Headedness, Other Objective-Cardiology Exam Last Set of Vital Signs Vital Signs 02/23/22 02/25/22 02/25/22 19:37 07:25 08:00 Temp 36.0 Pulse 64 Resp 18 B/P (MAP) 136/88 (104) Pulse Ox 97 O2 Delivery Room Air FiO2 21 I&O Intake and Output 02/25/22 00:00 Intake Total 990 ml Balance 990 ml Intake Oral 990 ml # Voids 4 # Bowel Movements 1 General: Alert, Oriented X3, Cooperative HEENT: Atraumatic, PERRLA Neck: Supple, No JVD, No Thyromegaly Lungs: Clear to Auscultation, Normal Air Movement Heart: Regular Rate, Normal S1, Normal S2, No Murmurs Abdomen: Normal Bowel Sounds, Soft, No Tenderness, No Hepatosplenomegaly, No Masses Extremities: No Clubbing, No Cyanosis, No Edema, Normal Pulses, No Tenderness/S welling Skin: No Rashes, No Breakdown, No Significant Lesion Neuro: Normal Gait, Normal Speech, Strength at 5/5 X4 Ext, Normal Tone, Sensation Intact Psych/Mental Status: Mood NL, Other (Agitated) A/P-Cardiology Admission Diagnosis Paroxysmal atrial fibrillation Tachycardia Bipolar disorder Schizophrenia Assessment/Plan Paroxysmal atrial fibrillation with rapid ventricular response Single episodes occurred during severe agitation. Returned to sinus rhythm on Cardizem. Will evaluate 2D echo [id number] score of 0, patient was started on Eliquis. Converted to sinus rhythm. I will discontinue Eliquis and Cardizem at this point. Monitor rhythm as an outpatient Behavioral disturbance, aggressive behavior, bipolar disorder and schizophrenia. Started on Geodon, managed by primary care team Planning to transfer for inpatient psych unit I will sign off at this point. Please feel free to reconsult if needed thank you for allowing me to participate in the management of Mr. Ma KELLY LOPEZ MD Feb 25, 2022 09:11
[2022-02-25] MEDS: APIXABAN 5 MG (ELIQUIS) TABLET PO SCH ×2 (09:12→20:21)
[2022-02-25 12:00] VITALS: BP 130/84
[2022-02-25] MEDS: WATER (STERILE) FOR INJ 10 ML BTL INJ SCH ×2 (12:30→20:21)
[2022-02-25] MEDS ORDERED: WATER (STERILE) FOR INJ 10 ML BTL INJ SCH (12:30)
--- NOTE | 2022-02-25 13:38 | Progress Note ---
LYNETTE BONILLA 02/25/22 1338: Subjective Date Seen by a Provider: Feb 25, 2022 Time Seen by a Provider: 13:28 Subjective/Events-last exam Patient 62 years old gentleman presented from a local care home with underlying bipolar disorder and schizophrenia. Patient was having significant behavioral disturbance, he was throwing tables and chairs and yelling at everyone. Patient was brought back to the emergency room by police. While in the ER he was noted to be in atrial fibrillation with rapid ventricular response. He was then admitted to the hospital for observation, where he continued to have episodes of psychosis and was given ziprasidone which helped the patient calm down. He is a [employer] and has [place] rights but did not have the paper work needed to be admitted there on his arrival to the ER. Paper work is being processed and patient should be heading to [facility]. During his stay cardiology was consulted. He was started on diltiazem and eliquis for his A-fib RVR. Once on those medications he returned to normal sinus rhythm. On his return to normal sinus rhythm both diltiazem ad eliquis were discontinued by cardiology. Patient had rough evening, was having episodes of delirium and yelling at staff. He refused having lab draws this morning and would not keep his telemetry on. He was mildly agitated this morning but did allow his physical exam to be preformed. He has no complaints of N/V or pain. Brian whelan did have elevated Hep C antibody index. His only complaint is he wants to leave the hospital. Objective Exam Last Set of Vital Signs Vital Signs Date Time Temp Pulse Resp B/P (MAP) Pulse Ox O2 Delivery O2 Flow Rate FiO2 02/25/22 12:00 36.4 59 17 130/84 (99) 98 Room Air 02/23/22 19:37 21 Capillary Refill : Less Than 3 Seconds I&O Intake and Output 02/25/22 00:00 Intake Total 990 ml Balance 990 ml Intake Oral 990 ml # Voids 4 # Bowel Movements 1 General: Alert, No Acute Distress HEENT: Atraumatic Neck: Supple, No Thyromegaly Lungs: Clear to Auscultation Heart: Regular Rate, No Murmurs Abdomen: Normal Bowel Sounds, Soft Extremities: No Clubbing, No Cyanosis Skin: No Rashes, No Breakdown Neuro: Normal Gait, Strength at 5/5 X4 Ext Assessment/Plan Assessment/Plan Assess & Plan/Chief Complaint A-fib with RVR- resolved Cardiology consulted Psychosis Give Zisprasidone History of alcohol dependence Elevated liver enzymes Elevated Hepatitis C 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 Schizophrenia Bipolar Restart home medication BLANCA DIAZ DO 02/26/22 0514: Objective Exam General: Alert, No Acute Distress Lungs: Clear to Auscultation Heart: Regular Rate Assessment/Plan Assessment/Plan Assess & Plan/Chief Complaint Violence noted Geodon scheduled injections Supervisory-Addendum Brief Verification & Attestation Participated in pt care: history, MDM, physical Personally performed: exam, history, MDM, supervision of care Care discussed with: Medical Student Procedures: n/a Results interpretation: Verified all documentation Verification and Attestation of Medical Student E/M Service A medical student performed and documented this service in my presence. I reviewed and verified all information documented by the medical student and made modifications to such information, when appropriate. I personally performed the physical exam and medical decision making. Blanca Diaz, Feb 26, 2022,05:12 LYNETTE BONILLA Feb 25, 2022 13:38 BLANCA DIAZ DO Feb 26, 2022 05:14
[2022-02-25] MEDS: ZIPRASIDONE 20 MG INJ (GEODON) VIAL IM SCH ×2 (13:42→20:20)
[2022-02-25 15:29] VITALS: BP 116/72
[2022-02-25] MEDS: ACETAMINOPHEN 325 MG TABLET PO PRN (15:38)
[2022-02-25 19:13] VITALS: BP 116/77
[2022-02-25] MEDS ORDERED: WATER (STERILE) FOR INJECTION 10 ML ONE (19:26)
[2022-02-25 23:47] VITALS: BP 121/73
[2022-02-26 03:33] VITALS: BP 122/81
[2022-02-26 06:04] LABS: BASOPHILS % (AUTO) 1 % (0-10); EOSINOPHILS % (AUTO) 1 % (0-10); HEMATOCRIT 39 % (40-54); HEMOGLOBIN 12.9 g/dL (13.3-17.7); LYMPHOCYTES # (AUTO) 1.3 10^3/uL (1.0-4.0); LYMPHOCYTES % (AUTO) 28 % (12-44); MEAN CORPUSCULAR HEMOGLOBIN 29 pg (25-34); MEAN CORPUSCULAR HGB CONC 33 g/dL (32-36); MEAN CORPUSCULAR VOLUME 86 fL (80-99); MEAN PLATELET VOLUME 11.1 fL (9.0-12.2); MONOCYTES # (AUTO) 0.5 10^3/uL (0.0-1.0); MONOCYTES % (AUTO) 12 % (0-12); NEUTROPHILS # (AUTO) 2.6 10^3/uL (1.8-7.8); NEUTROPHILS % (AUTO) 58 % (42-75); PLATELET COUNT 148 10^3/uL (130-400); WHITE BLOOD COUNT 4.5 10^3/uL (4.3-11.0)
[2022-02-26 06:20] LABS: ALBUMIN 3.3 GM/DL (3.2-4.5); POTASSIUM 3.9 MMOL/L (3.6-5.0)
[2022-02-26 06:21] LABS: CALCIUM 8.9 MG/DL (8.5-10.1)
[2022-02-26 06:24] LABS: BILIRUBIN,TOTAL 0.4 MG/DL (0.1-1.0)
[2022-02-26 06:26] LABS: CREATININE SERUM 1.04 MG/DL (0.60-1.30)
[2022-02-26 07:13] VITALS: BP 122/69
[2022-02-26] MEDS ORDERED: ZIPRASIDONE 20 MG INJ (GEODON) VIAL IM SCH ×2 (09:00→15:00)
[2022-02-26] MEDS: ZIPRASIDONE 20 MG INJ (GEODON) VIAL IM SCH (09:22)
[2022-02-26] MEDS: APIXABAN 5 MG (ELIQUIS) TABLET PO SCH ×2 (09:24→20:49)
[2022-02-26] MEDS: ASPIRIN 325 MG (5 GR) TABLET PO SCH (09:24)
[2022-02-26] MEDS: DOCUSATE SODIUM 100 MG (COLACE) CAP PO SCH ×2 (09:25→20:47)
[2022-02-26] MEDS: SENNOSIDES 8.6 MG (SENOKOT) TAB PO SCH ×2 (09:25→20:47)
[2022-02-26] MEDS ORDERED: WATER (STERILE) FOR INJ 10 ML BTL INJ PRN ×2 (09:30→15:00)
[2022-02-26] MEDS ORDERED: ZIPRASIDONE 20 MG (GEODON) CAP PO NR (10:00)
[2022-02-26 11:01] VITALS: BP 117/70
--- NOTE | 2022-02-26 11:48 | Progress Note ---
LYNETTE BONILLA 02/26/22 1148: Subjective Date Seen by a Provider: Feb 26, 2022 Time Seen by a Provider: 11:41 Subjective/Events-last exam Patient did have more agitation/aggressive behavior yesterday afternoon Geodon was administered improving patients mood and behavior This morning he was pleasant and non combative He had no reports of pain He had no other complaints at this time Still has confusion about his stay here and wants to go home Had a bowel movement this morning after some Senna Slept well Labs reviewed Objective Exam Last Set of Vital Signs Vital Signs Date Time Temp Pulse Resp B/P (MAP) Pulse Ox O2 Delivery O2 Flow Rate FiO2 02/26/22 11:01 36.3 62 18 117/70 (86) 97 Room Air 02/23/22 19:37 21 Capillary Refill : Less Than 3 Seconds I&O Intake and Output 02/26/22 00:00 Intake Total 1470 ml Balance 1470 ml Intake Oral 1470 ml # Voids 7 # Bowel Movements 2 General: Alert, Cooperative, No Acute Distress HEENT: Atraumatic Neck: Supple, No JVD Lungs: Clear to Auscultation Heart: Regular Rate, No Murmurs Abdomen: Normal Bowel Sounds, Soft Extremities: No Clubbing, No Cyanosis Skin: No Rashes, No Breakdown Neuro: Normal Speech, Normal Tone, Sensation Intact Results Lab Laboratory Tests 02/26/22 05:30: White Blood Count 4.5, Red Blood Count 4.53, Hemoglobin 12.9L, Hematocrit 39L, Mean Corpuscular Volume 86, Mean Corpuscular Hemoglobin 29, Mean Corpuscular Hemoglobin Concent 33, Red Cell Distribution Width 13.1, Platelet Count 148, Mean Platelet Volume 11.1, Immature Granulocyte % (Auto) 0, Neutrophils (%) (Auto) 58, Lymphocytes (%) (Auto) 28, Monocytes (%) (Auto) 12, Eosinophils (%) (Auto) 1, Basophils (%) (Auto) 1, Neutrophils # (Auto) 2.6, Lymphocytes # (Auto) 1.3, Monocytes # (Auto) 0.5, Eosinophils # (Auto) 0.0, Basophils # (Auto) 0.0, Immature Granulocyte # (Auto) 0.0, Sodium Level 139, Potassium Level 3.9, Chloride Level 107, Carbon Dioxide Level 19L, Anion Gap 13, Blood Urea Nitrogen 15, Creatinine 1.04, Estimat Glomerular Filtration Rate 82, BUN/Creatinine Ratio 14, Glucose Level 87, Calcium Level 8.9, Corrected Calcium 9.5, Total Bilirubin 0.4, Aspartate Amino Transf (AST/SGOT) 46H, Alanine Aminotransferase (ALT/SGPT) 51, Alkaline Phosphatase 62, Total Protein 7.0, Albumin 3.3 Assessment/Plan Assessment/Plan Assess & Plan/Chief Complaint A-fib with RVR- resolved Cardiology consulted- Dr. Sloan is signing off case at this time. Will be available if needed in future. Psychosis/Violence Given Ziprasidone- Appears to be calming patient. 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 Supervisory-Addendum Brief Verification & Attestation Participated in pt care: history, MDM, physical Personally performed: exam, history, MDM, supervision of care Care discussed with: Medical Student Procedures: n/a Results interpretation: Verified all documentation Verification and Attestation of Medical Student E/M Service A medical student performed and documented this service in my presence. I reviewed and verified all information documented by the medical student and made modifications to such information, when appropriate. I personally performed the physical exam and medical decision making. Karie Diaz, Feb 27, 2022,05:23 LYNETTE BONILLA Feb 26, 2022 11:48 KARIE DIAZ DO Feb 27, 2022 05:24
[2022-02-26] MEDS ORDERED: WATER (STERILE) FOR INJ 10 ML BTL INJ SCH (13:00)
[2022-02-26] MEDS ORDERED: ZIPRASIDONE 20 MG INJ (GEODON) VIAL IM PRN (15:00)
[2022-02-26 15:09] VITALS: BP 133/94
[2022-02-26] MEDS: ZIPRASIDONE 20 MG (GEODON) CAP PO SCH (17:02)
[2022-02-26 19:06] VITALS: BP 138/68
[2022-02-26 23:28] VITALS: BP 124/72
[2022-02-27 03:47] VITALS: BP 118/68
[2022-02-27 06:33] LABS: BASOPHILS # (AUTO) 0.1 10^3/uL (0.0-0.1); BASOPHILS % (AUTO) 1 % (0-10); EOSINOPHILS # (AUTO) 0.1 10^3/uL (0.0-0.3); EOSINOPHILS % (AUTO) 1 % (0-10); HEMATOCRIT 41 % (40-54); HEMOGLOBIN 13.4 g/dL (13.3-17.7); LYMPHOCYTES # (AUTO) 1.5 10^3/uL (1.0-4.0); LYMPHOCYTES % (AUTO) 28 % (12-44); MEAN CORPUSCULAR HEMOGLOBIN 28 pg (25-34); MEAN CORPUSCULAR HGB CONC 33 g/dL (32-36); MEAN CORPUSCULAR VOLUME 87 fL (80-99); MEAN PLATELET VOLUME 11.8 fL (9.0-12.2); MONOCYTES # (AUTO) 0.6 10^3/uL (0.0-1.0); MONOCYTES % (AUTO) 11 % (0-12); NEUTROPHILS # (AUTO) 3.3 10^3/uL (1.8-7.8); NEUTROPHILS % (AUTO) 60 % (42-75); PLATELET COUNT 162 10^3/uL (130-400); WHITE BLOOD COUNT 5.5 10^3/uL (4.3-11.0)
[2022-02-27 07:02] LABS: ALBUMIN 3.3 GM/DL (3.2-4.5); BILIRUBIN,TOTAL 0.3 MG/DL (0.1-1.0); CALCIUM 8.9 MG/DL (8.5-10.1); CREATININE SERUM 0.97 MG/DL (0.60-1.30); TOTAL PROTEIN 7.3 GM/DL (6.4-8.2)
[2022-02-27 07:16] VITALS: BP 156/96
[2022-02-27] MEDS: ZIPRASIDONE 20 MG (GEODON) CAP PO SCH ×2 (08:24→17:30)
[2022-02-27] MEDS: ASPIRIN 325 MG (5 GR) TABLET PO SCH (08:24)
[2022-02-27] MEDS: DOCUSATE SODIUM 100 MG (COLACE) CAP PO SCH (08:27)
[2022-02-27] MEDS: SENNOSIDES 8.6 MG (SENOKOT) TAB PO SCH (08:28)
[2022-02-27 11:07] VITALS: BP 128/90
[2022-02-27] MEDS ORDERED: ZIPR20CA24 PO (12:18)
[2022-02-27] MEDS ORDERED: ASPI-808 PO (12:18)
--- NOTE | 2022-02-27 12:18 | Discharge Summary ---
Diagnosis/Chief Complaint Date of Admission Feb 23, 2022 at 17:21 Date of Discharge Discharge Date: Feb 27, 2022 Discharge Diagnosis Acute psychosis Violent behavior Isolated episode of AF placed on ASA by Dr Sloan after ECHO HTN Reason Hospital Visit CC: Psychosis with episode of AF RVR HPI: [facility] 62[facility] who presented to the ER with psychosis and had an episode of AF RVR quickly aborted with Cardizem bolus 5mg. Cardiology consulted. [facility] evaluation completed and will attempt to move to [facility]. Discharge Summary Discharge Physical Examination Allergies: Coded Allergies: No Known Drug Allergies (Unverified , 02/23/22) Vitals & I&Os Vital Signs Date Time Temp Pulse Resp B/P (MAP) Pulse Ox O2 Delivery O2 Flow Rate FiO2 02/27/22 15:11 36.6 67 18 143/93 (110) 98 Room Air 02/23/22 19:37 21 General Appearance: Alert, Oriented X3, Cooperative Respiratory: Clear to Auscultation Cardiovascular: Regular Rate Neuro: Normal Gait, Normal Speech, Strength at 5/5 X4 Ext Psych/Mental Status: Mental Status NL Hospital Course Was the Problem List Reviewed?: Yes Patient 62 years old gentleman presented from a local halfway with underlying bipolar disorder and schizophrenia. Patient was having significant behavioral disturbance, he was throwing tables and chairs and yelling at everyone at his [facility]. Patient was brought back to the emergency room by police. While in the ER he was noted to be in atrial fibrillation with rapid ventricular response. He was then admitted to the hospital for observation, where he continued to have episodes of psychosis and was given ziprasidone which helped the patient calm down. He is a [employer] and has [employer] rights. During his stay cardiology was consulted. He was started on diltiazem and eliquis for his A-fib RVR. Once on those medications he returned to normal sinus rhythm. On his return to normal sinus rhythm both diltiazem and eliquis were discontinued by cardiology. 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 He refused having lab draws that morning and would not keep his telemetry on. He was subsequently given another dose of ziprasadone later on the which helped him calm and reduce his violence. He was mildly agitated the morning of 02-26-2022 but did allow his physical exam to be preformed. He has no complaints of N/V or pain. Patient did have elevated Hep C antibody index. His only complaint is he wants to leave the hospital. As of today patient is in a much improved mood and pleasant. He has no pain, N/V, or complaints. He is eating well and bowel movements are regular. Patient is in good status at this time. LYNETTE BONILLA Labs (last 24 hrs) Laboratory Tests 02/23/22 13:29: White Blood Count 5.1, Red Blood Count 4.67, Hemoglobin 13.2L, Hematocrit 40, Mean Corpuscular Volume 86, Mean Corpuscular Hemoglobin 28, Mean Corpuscular Hemoglobin Concent 33, Red Cell Distribution Width 13.1, Platelet Count 174, Mean Platelet Volume 10.9, Immature Granulocyte % (Auto) 0, Neutrophils (%) (Auto) 60, Lymphocytes (%) (Auto) 26, Monocytes (%) (Auto) 12, Eosinophils (%) (Auto) 1, Basophils (%) (Auto) 1, Neutrophils # (Auto) 3.1, Lymphocytes # (Auto) 1.3, Monocytes # (Auto) 0.6, Eosinophils # (Auto) 0.0, Basophils # (Auto) 0.0, Immature Granulocyte # (Auto) 0.0, Sodium Level 140, Potassium Level 3.7, Chloride Level 107, Carbon Dioxide Level 17L, Anion Gap 16H, Blood Urea Nitrogen 15, Creatinine 1.35H, Estimat Glomerular Filtration Rate 60, BUN/Creatinine Ratio 11, Glucose Level 126H, Calcium Level 9.3, Corrected Calcium 9.7, Total Bilirubin 0.4, Aspartate Amino Transf (AST/SGOT) 55H, Alanine Aminotransferase (ALT/SGPT) 65H, Alkaline Phosphatase 63, Total Protein 7.5, Albumin 3.5, Salicylates Level < 5.0L, Acetaminophen Level < 10L, Serum Alcohol < 10 02/23/22 13:30: Influenza Type A (RT-PCR) Not Detected, Influenza Type B (RT-PCR) Not Detected, SARS-CoV-2 RNA (RT-PCR) Not Detected 02/23/22 15:54: Urine Color YELLOW, Urine Clarity CLEAR, Urine pH 7.0, Urine Specific [place] <=1.005, Urine Protein NEGATIVE, Urine Glucose (UA) NEGATIVE, Urine Ketones NEG ATIVE, Urine Nitrite NEGATIVE, Urine Bilirubin NEGATIVE, Urine Urobilinogen 0.2, Urine Leukocyte Esterase NEGATIVE, Urine RBC (Auto) NEGATIVE, Urine RBC NONE, Urine WBC NONE, Urine Squamous Epithelial Cells 0-2, Urine Crystals NONE, Urine Bacteria NEGATIVE, Urine Casts NONE, Urine Mucus NEGATIVE, Urine Culture Indicated NO, Urine Opiates Screen NEGATIVE, Urine Oxycodone Screen NEGATIVE, Urine Methadone Screen NEGATIVE, Urine Propoxyphene Screen NEGATIVE, Urine Barbiturates Screen NEGATIVE, Ur Tricyclic Antidepressants Screen NEGATIVE, Urine Phencyclidine Screen NEGATIVE, Urine Amphetamines Screen NEGATIVE, Urine Methamphetamines Screen NEGATIVE, Urine Benzodiazepines Screen NEGATIVE, Urine Cocaine Screen NEGATIVE, Urine Cannabinoids Screen NEGATIVE 02/24/22 05:00: Vitamin B12 Level 527, Thyroid Stimulating Hormone (TSH) 1.73 02/24/22 05:19: White Blood Count 5.1, Red Blood Count 4.49, Hemoglobin 12.5L, Hematocrit 39L, Mean Corpuscular Volume 86, Mean Corpuscular Hemoglobin 28, Mean Corpuscular Hemoglobin Concent 33, Red Cell Distribution Width 13.0, Platelet Count 168, Mean Platelet Volume 11.4, Immature Granulocyte % (Auto) 0, Neutrophils (%) (Auto) 52, Lymphocytes (%) (Auto) 35, Monocytes (%) (Auto) 11, Eosinophils (%) (Auto) 1, Basophils (%) (Auto) 1, Neutrophils # (Auto) 2.6, Lymphocytes # (Auto) 1.8, Monocytes # (Auto) 0.6, Eosinophils # (Auto) 0.0, Basophils # (Auto) 0.1, Immature Granulocyte # (Auto) 0.0, Sodium Level 141, Potassium Level 3.7, Chloride Level 109H, Carbon Dioxide Level 20L, Anion Gap 12, Blood Urea Nitrogen 15, Creatinine 1.05, Estimat Glomerular Filtration Rate 81, BUN/Creatinine Ratio 14, Glucose Level 88, Calcium Level 8.6, Corrected Calcium 9.3, Total Bilirubin 0.4, Aspartate Amino Transf (AST/SGOT) 49H, Alanine Aminotransferase (ALT/SGPT) 57H, Alkaline Phosphatase 57, Total Protein 6.6, Albumin 3.1L 02/24/22 09:33: Hepatitis A IgM Antibody Non-Reactive, Hepatitis B Surface Antigen Non-Reactive, Hepatitis B Core IgM Antibody Non-Reactive, Hepatitis C Antibody ReactiveH, Hepatitis C Antibody Index 11.60H 02/26/22 05:30: White Blood Count 4.5, Red Blood Count 4.53, Hemoglobin 12.9L, Hematocrit 39L, Mean Corpuscular Volume 86, Mean Corpuscular Hemoglobin 29, Mean Corpuscular Hemoglobin Concent 33, Red Cell Distribution Width 13.1, Platelet Count 148, Mean Platelet Volume 11.1, Immature Granulocyte % (Auto) 0, Neutrophils (%) (Auto) 58, Lymphocytes (%) (Auto) 28, Monocytes (%) (Auto) 12, Eosinophils (%) (Auto) 1, Basophils (%) (Auto) 1, Neutrophils # (Auto) 2.6, Lymphocytes # (Auto) 1.3, Monocytes # (Auto) 0.5, Eosinophils # (Auto) 0.0, Basophils # (Auto) 0.0, Immature Granulocyte # (Auto) 0.0, Sodium Level 139, Potassium Level 3.9, Chloride Level 107, Carbon Dioxide Level 19L, Anion Gap 13, Blood Urea Nitrogen 15, Creatinine 1.04, Estimat Glomerular Filtration Rate 82, BUN/Creatinine Ratio 14, Glucose Level 87, Calcium Level 8.9, Corrected Calcium 9.5, Total Bilirubin 0.4, Aspartate Amino Transf (AST/SGOT) 46H, Alanine Aminotransferase (ALT/SGPT) 51, Alkaline Phosphatase 62, Total Protein 7.0, Albumin 3.3 02/27/22 05:33: White Blood Count 5.5, Red Blood Count 4.72, Hemoglobin 13.4, Hematocrit 41, Mean Corpuscular Volume 87, Mean Corpuscular Hemoglobin 28, Mean Corpuscular Hemoglobin Concent 33, Red Cell Distribution Width 13.1, Platelet Count 162, Mean Platelet Volume 11.8, Immature Granulocyte % (Auto) 0, Neutrophils (%) (Auto) 60, Lymphocytes (%) (Auto) 28, Monocytes (%) (Auto) 11, Eosinophils (%) (Auto) 1, Basophils (%) (Auto) 1, Neutrophils # (Auto) 3.3, Lymphocytes # (Auto) 1.5, Monocytes # (Auto) 0.6, Eosinophils # (Auto) 0.1, Basophils # (Auto) 0.1, Immature Granulocyte # (Auto) 0.0 02/27/22 06:03: Sodium Level 141, Potassium Level 4.0, Chloride Level 108H, Carbon Dioxide Level 22, Anion Gap 11, Blood Urea Nitrogen 18, Creatinine 0.97, Estimat Glomerular Filtration Rate 89, BUN/Creatinine Ratio 19, Glucose Level 85, Calcium Level 8.9, Corrected Calcium 9.5, Total Bilirubin 0.3, Aspartate Amino Transf (AST/SGOT) 47H, Alanine Aminotransferase (ALT/SGPT) 55, Alkaline Phosphatase 64, Total Protein 7.3, Albumin 3.3 Pending Labs Laboratory Tests 02/23/22 13:29: White Blood Count 5.1, Red Blood Count 4.67, Hemoglobin 13.2, Hematocrit 40, Mean Corpuscular Volume 86, Mean Corpuscular Hemoglobin 28, Mean Corpuscular Hemoglobin Concent 33, Red Cell Distribution Width 13.1, Platelet Count 174, Mean Platelet Volume 10.9, Immature Granulocyte % (Auto) 0, Neutrophils (%) (Auto) 60, Lymphocytes (%) (Auto) 26, Monocytes (%) (Auto) 12, Eosinophils (%) ( Auto) 1, Basophils (%) (Auto) 1, Neutrophils # (Auto) 3.1, Lymphocytes # (Auto) 1.3, Monocytes # (Auto) 0.6, Eosinophils # (Auto) 0.0, Basophils # (Auto) 0.0, Immature Granulocyte # (Auto) 0.0, Sodium Level 140, Potassium Level 3.7, Chloride Level 107, Carbon Dioxide Level 17, Anion Gap 16, Blood Urea Nitrogen 15, Creatinine 1.35, Estimat Glomerular Filtration Rate 60, BUN/Creatinine Ratio 11, Glucose Level 126, Calcium Level 9.3, Corrected Calcium 9.7, Total Bilirubin 0.4, Aspartate Amino Transf (AST/SGOT) 55, Alanine Aminotransferase (ALT/SGPT) 65, Alkaline Phosphatase 63, Total Protein 7.5, Albumin 3.5, Salicylates Level < 5.0, Acetaminophen Level < 10, Serum Alcohol < 10 02/23/22 13:30: Influenza Type A (RT-PCR) Not Detected, Influenza Type B (RT-PCR) Not Detected, SARS-CoV-2 RNA (RT-PCR) Not Detected 02/23/22 15:54: Urine Color YELLOW, Urine Clarity CLEAR, Urine pH 7.0, Urine Specific [place] <=1.005, Urine Protein NEGATIVE, Urine Glucose (UA) NEGATIVE, Urine Ketones NEGATIVE, Urine Nitrite NEGATIVE, Urine Bilirubin NEGATIVE, Urine Urobilinogen 0.2, Urine Leukocyte Esterase NEGATIVE, Urine RBC (Auto) NEGATIVE, Urine RBC NONE, Urine WBC NONE, Urine Squamous Epithelial Cells 0-2, Urine Crystals NONE, Urine Bacteria NEGATIVE, Urine Casts NONE, Urine Mucus NEGATIVE, Urine Culture Indicated NO, Urine Opiates Screen NEGATIVE, Urine Oxycodone Screen NEGATIVE, Urine Methadone Screen NEGATIVE, Urine Propoxyphene Screen NEGATIVE, Urine Barbiturates Screen NEGATIVE, Ur Tricyclic Antidepressants Screen NEGATIVE, Urine Phencyclidine Screen NEGATIVE, Urine Amphetamines Screen NEGATIVE, Urine Methamphetamines Screen NEGATIVE, Urine Benzodiazepines Screen NEGATIVE, Urine Cocaine Screen NEGATIVE, Urine Cannabinoids Screen NEGATIVE 02/24/22 05:00: Vitamin B12 Level 527, Thyroid Stimulating Hormone (TSH) 1.73 02/24/22 05:19: White Blood Count 5.1, Red Blood Count 4.49, Hemoglobin 12.5, Hematocrit 39, Mean Corpuscular Volume 86, Mean Corpuscular Hemoglobin 28, Mean Corpuscular Hemoglobin Concent 33, Red Cell Distribution Width 13.0, Platelet Count 168, Mean Platelet Volume 11.4, Immature Granulocyte % (Auto) 0, Neutrophils (%) (Auto) 52, Lymphocytes (%) (Auto) 35, Monocytes (%) (Auto) 11, Eosinophils (%) (Auto) 1, Basophils (%) (Auto) 1, Neutrophils # (Auto) 2.6, Lymphocytes # (Auto) 1.8, Monocytes # (Auto) 0.6, Eosinophils # (Auto) 0.0, Basophils # (Auto) 0.1, Immature Granulocyte # (Auto) 0.0, Sodium Level 141, Potassium Level 3.7, Chloride Level 109, Carbon Dioxide Level 20, Anion Gap 12, Blood Urea Nitrogen 15, Creatinine 1.05, Estimat Glomerular Filtration Rate 81, BUN/Creatinine Ratio 14, Glucose Level 88, Calcium Level 8.6, Corrected Calcium 9.3, Total Bilirubin 0.4, Aspartate Amino Transf (AST/SGOT) 49, Alanine Aminotransferase (ALT/SGPT) 57, Alkaline Phosphatase 57, Total Protein 6.6, Albumin 3.1 02/24/22 09:33: Hepatitis A IgM Antibody Non-Reactive, Hepatitis B Surface Antigen Non-Reactive, Hepatitis B Core IgM Antibody Non-Reactive, Hepatitis C Antibody Reactive, Hepatitis C Antibody Index 11.60 02/26/22 05:30: White Blood Count 4.5, Red Blood Count 4.53, Hemoglobin 12.9, Hematocrit 39, Mean Corpuscular Volume 86, Mean Corpuscular Hemoglobin 29, Mean Corpuscular Hemoglobin Concent 33, Red Cell Distribution Width 13.1, Platelet Count 148, Mean Platelet Volume 11.1, Immature Granulocyte % (Auto) 0, Neutrophils (%) (Auto) 58, Lymphocytes (%) (Auto) 28, Monocytes (%) (Auto) 12, Eosinophils (%) (Auto) 1, Basophils (%) (Auto) 1, Neutrophils # (Auto) 2.6, Lymphocytes # (Auto) 1.3, Monocytes # (Auto) 0.5, Eosinophils # (Auto) 0.0, Basophils # (Auto) 0.0, Immature Granulocyte # (Auto) 0.0, Sodium Level 139, Potassium Level 3.9, Chloride Level 107, Carbon Dioxide Level 19, Anion Gap 13, Blood Urea Nitrogen 15, Creatinine 1.04, Estimat Glomerular Filtration Rate 82, BUN/Creatinine Ratio 14, Glucose Level 87, Calcium Level 8.9, Corrected Calcium 9.5, Total Bilirubin 0.4, Aspartate Amino Transf (AST/SGOT) 46, Alanine Aminotransferase (ALT/SGPT) 51, Alkaline Phosphatase 62, Total Protein 7.0, Albumin 3.3 02/27/22 05:33: White Blood Count 5.5, Red Blood Count 4.72, Hemoglobin 13.4, Hematocrit 41, Mean Corpuscular Volume 87, Mean Corpuscular Hemoglobin 28, Mean Corpuscular Hemoglobin Concent 33, Red Cell Distribution Width 13.1, Platelet Count 162, Mean Platelet Volume 11.8, Immature Granulocyte % (Auto) 0, Neutrophils (%) (Auto) 60, Lymphocytes (%) (Auto) 28, Monocytes (%) (Auto) 11, Eosinophils (%) (Auto) 1, Basophils (%) (Auto) 1, Neutrophils # (Auto) 3.3, Lymphocytes # (Auto) 1.5, Monocytes # (Auto) 0.6, Eosinophils # (Auto) 0.1, Basophils # (Auto) 0.1, Immature Granulocyte # (Auto) 0.0 02/27/22 06:03: Sodium Level 141, Potassium Level 4.0, Chloride Level 108, Carbon Dioxide Level 22, Anion Gap 11, Blood Urea Nitrogen 18, Creatinine 0.97, Estimat Glomerular Filtration Rate 89, BUN/Creatinine Ratio 19, Glucose Level 85, Calcium Level 8.9, Corrected Calcium 9.5, Total Bilirubin 0.3, Aspartate Amino Transf (AST/SGOT) 47, Alanine Aminotransferase (ALT/SGPT) 55, Alkaline Phosphatase 64, Total Protein 7.3, Albumin 3.3 Discharge Home Medications: Active Scripts Active Ziprasidone HCl 20 Mg Capsule 20 Mg PO BID WITH MEALS Aspirin 325 Mg Tablet 325 Mg PO DAILY Aspirin 325 Mg Tablet 325 Mg PO DAILY Reported Trazodone HCl 50 Mg Tablet 50 Mg PO HS Sertraline HCl 50 Mg Tablet 25 Mg PO DAILY TAKES OF A 50MG TAB Melatonin 3 Mg Tablet 3 Mg PO HS Ativan (Lorazepam) 0.5 Mg Tablet 0.5 Mg PO DAILY Lisinopril 40 Mg Tablet 20 Mg PO DAILY TOLD FOR SBP <90 OR PULSE <50- NOTIFY NURSE IF HELD TAKES OF A 40MG TAB Donepezil HCl 5 Mg Tablet 5 Mg PO HS Chlorthalidone 25 Mg Tablet 25 Mg PO DAILY Atorvastatin Calcium 40 Mg Tablet 40 Mg PO DAILY Amlodipine Besylate 10 Mg Tablet 10 Mg PO DAILY HOLD FOR SBP<95 Instructions to patient/family Please see electronic discharge instructions given to patient. BLANCA DIAZ DO Feb 27, 2022 12:18
--- NOTE | 2022-02-27 13:09 | Progress Note ---
LYNETTE BONILLA 02/27/22 1309: Progress Note Patient 62 years old gentleman presented from a local [facility] with underlying bipolar disorder and schizophrenia. Patient was having significant behavioral disturbance, he was throwing tables and chairs and yelling at everyone at his [facility]. Patient was brought back to the emergency room by police. While in the ER he was noted to be in atrial fibrillation with rapid ventricular response. He was then admitted to the hospital for observation, where he continued to have episodes of psychosis and was given ziprasidone which helped the patient calm down. He is a [employer] and has [employer] rights. During his stay cardiology was consulted. He was started on diltiazem and eliquis for his A-fib RVR. Once on those medications he returned to normal sinus rhythm. On his return to normal sinus rhythm both diltiazem and eliquis were discontinued by cardiology. 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 He refused having lab draws that morning and would not keep his telemetry on. He was subsequently given another dose of ziprasadone later on the which helped him calm and reduce his violence. He was mildly agitated the morning of 02-26-2022 but did allow his physical exam to be preformed. He has no complaints of N/V or pain. Patient did have elevated Hep C antibody index. His only complaint is he wants to leave the hospital. As of today patient is in a much improved mood and pleasant. He has no pain, N/V, or complaints. He is eating well and bowel movements are regular. Patient is in good status at this time. KARIE DIAZ DO 02/28/22 0636: Supervisory-Addendum Brief Verification & Attestation Participated in pt care: history, MDM, physical Personally performed: exam, history, MDM, supervision of care Care discussed with: Medical Student Procedures: n/a Results interpretation: Verified all documentation Verification and Attestation of Medical Student E/M Service A medical student performed and documented this service in my presence. I reviewed and verified all information documented by the medical student and made modifications to such information, when appropriate. I personally performed the physical exam and medical decision making. Karie Diaz, Feb 28, 2022,06:36 LYNETTE BONILLA Feb 27, 2022 13:09 KARIE DIAZ DO Feb 28, 2022 06:36
[2022-02-27 15:11] VITALS: BP 143/93
== END 2022-02-27 12:17 ==
LOC: ER 08:43 → UNDOADMOB 17:21 → 4TH 17:21 → UNDODISOB 02-27 12:17
PROVIDERS: ADMIT Internal Medicine; ATTEND Internal Medicine
DX: F23 Brief psychotic disorder (principal); I48.0 Paroxysmal atrial fibrillation; Z79.899 Other long term (current) drug therapy; F17.210 Nicotine dependence, cigarettes, uncomplicated; I10 Essential (primary) hypertension
CPT/HCPCS: 36415; 80053; 80074; 80306; 80320; 80329; 81000; 82607; 84443; 85025; 87636; 93005; 93041; 93306; 96361; 96372; 96374; G0378